=== PATIENT | male | born 1970 | race American Indian/Alaskan Native ===

== ENCOUNTER 2016-04-15 07:52 | Emergency (ER) | payer OTHER ==
[2016-04-15 08:14] VITALS: BP 158/101
[2016-04-15] MEDS ORDERED: Lidocaine 1% with EPINEPHrine 1:100,000 20 ML MDV INJECT ONE (08:19)
[2016-04-15] MEDS ORDERED: Lidocaine 1% 20 ML MDV INJECT ONE (08:22)
--- NOTE | 2016-04-15 08:22 | EDM.PDOC ---
ED HPI Trauma - General Chief Complaint: Lower Extremity Injury/Pain Stated Complaint: OBJECT IN RIGHT FOOT Time Seen by Provider: 04/15/16 08:13 - History of Present Illness INITIAL COMMENTS - FREE TEXT/NARRATIVE: HISTORY AND PHYSICAL: History of present illness: The patient is a 45-year-old male with a history of hypertension and diabetes who presents with complaints of a piece of a toothpick stuck in his right fifth toe. He states he got up to the bathroom and there was a toothpick on the floor stuck him in the foot and broke. He states a small piece is a left in the left fifth toe and there is pain to the area. He has no redness and no other injuries. Patient is aware that his blood pressure is on the high side and his sugars have not been well controlled but he is not here for that evaluation. Patient denies any other systemic complaints. Review of systems: As per history of present illness and below otherwise all systems reviewed and negative. Past medical history: As per history of present illness and as reviewed below otherwise noncontributory. Surgical history: As per history of present illness and as reviewed below otherwise noncontributory. Social history: No reported history of drug or alcohol abuse. Family history: As per history of present illness and as reviewed below otherwise noncontributory. Physical exam: General: Well-developed well-nourished male who is overweight and nontoxic. Vital signs have been noted by me HEENT: Atraumatic, normocephalic, negative for conjunctival pallor or scleral icterus, mucous membranes moist, throat clear, neck supple, nontender, trachea midline. Lungs: Clear to auscultation, breath sounds equal bilaterally, chest nontender. Heart: S1S2, regular, negative for clicks, rubs, or JVD. Abdomen: Soft, nondistended, nontender. Negative for masses or hepatosplenomegaly. NABS. Genitourinary: Deferred. Rectal: Deferred. Extremities: Atraumatic except for the lateral aspect of the right fifth toe where there is a small piece of wood that is palpable but there is no redness swelling or other defects appreciated. Patient is able to range of motion the toes and pulses are intact. The legs are, negative for cords or calf pain. Neurovascular unremarkable. Neuro: Awake, alert, oriented. Cranial nerves II through XII unremarkable. Cerebellum unremarkable. Motor and sensory unremarkable throughout. Exam nonfocal. Diagnostics: [] Therapeutics: Procedure note: After the area was cleansed/prepped with Betadine and anesthetized locally with 1% lidocaine without epinephrine and using an 11 blade scalpel a small superficial incision was made lateral to where the foreign body is palpated and using a hemostat the piece of toothpick was removed without complication. Hemostasis was achieved and a dressing with Betadine was placed per nursing. The patient tolerated this well. Impression: Foreign body right fifth toe stable Definitive disposition and diagnosis as appropriate pending reevaluation and review of above. Allergies/ADRs: Allergies No Known Allergies Allergy (Verified 04/15/16 08:07) Home Medications: Ambulatory Orders Lisinopril 10 mg PO DAILY 04/15/16 [Confirmed 04/15/16] Simvastatin [Zocor] 20 mg PO BEDTIME 04/15/16 [Confirmed 04/15/16] metFORMIN [Glucophage XR] 1,000 mg PO WITHDINNER 04/15/16 [Confirmed 04/15/16] Past Medical History Cardiovascular History: Reports: High cholesterol, Hypertension Endocrine/Metabolic History: Reports: Diabetes, type II - Infectious Disease History Infectious Disease History: Reports: Shingles Social & Family History - Tobacco Use Smoking Status *Q: Current Every Day Smoker Years of Tobacco use: 20 Packs/Tins Daily: 1 - Caffeine Use Caffeine Use: Reports: Energy drinks - Recreational Drug Use Recreational Drug Use: No Review of Systems - Review of Systems Review Of Systems: ROS reveals no pertinent complaints other than HPI. Trauma Exam - Physical Exam Exam: See Below (See dictation) Course - Vital Signs Last Recorded V/S: Last Vital Signs Temp 35.8 C 04/15/16 08:13 Pulse 92 04/15/16 08:13 Resp 18 04/15/16 08:13 BP 158/101 H 04/15/16 08:13 Pulse Ox 98 04/15/16 08:13 - Orders/Labs/Meds Orders: Active Orders 24 hr Category Date Time Status Communication Order [RC] STAT Care 04/15/16 08:47 Ordered Bacitracin [Bacitracin Oint 1 GM] Med 04/15/16 08:47 Once 1 dose TOP ONETIME ONE Meds: Medications Discontinued Medications Generic Name Dose Route Start Last Admin Trade Name Freq PRN Reason Stop Dose Admin Lidocaine HCl 20 ml 04/15/16 08:22 04/15/16 08:29 Xylocaine 1% INJECT 04/15/16 08:23 20 ml ONETIME ONE Administration Departure - Departure Time of Disposition: 08:49 Disposition: Home, Self-Care 01 Condition: good Clinical Impression: Foreign body of toe of right foot Qualifiers: Encounter type: initial encounter Qualified Code(s): S90.454A - Superficial foreign body, right lesser toe(s), initial encounter Forms: ED Department Discharge Additional Instructions: The following information is given to patients seen in the emergency department who are being discharged to home. This information is to outline your options for follow-up care. We provide all patients seen in our emergency department with a follow-up referral. The need for follow-up, as well as the timing and circumstances, are variable depending upon the specifics of your emergency department visit. If you don't have a primary care physician on staff, we will provide you with a referral. We always advise you to contact your personal physician following an emergency department visit to inform them of the circumstance of the visit and for follow-up with them and/or the need for any referrals to a consulting specialist. The emergency department will also refer you to a specialist when appropriate. This referral assures that you have the opportunity for followup care with a specialist. All of these measure are taken in an effort to provide you with optimal care, which includes your followup. Under all circumstances we always encourage you to contact your private physician who remains a resource for coordinating your care. When calling for followup care, please make the office aware that this follow-up is from your recent emergency room visit. If for any reason you are refused follow-up, please contact the [facility] emergency department at and ask to speak to the emergency department charge nurse. [facility]- Internal Medicine [place] [address] Dr Nacho [address] [place] [id number] Keep area clean and dry cleansing with mild soap and water pat dry and apply bacitracin or Neosporin. Please take antibiotics as directed. These followup with our deblocker for further care and evaluation and also your primary provider at [facility] or one of our providers in the clinic for further care of your blood pressure and diabetes. Return to ER as needed and as discussed - My Orders Last 24 Hours: My Active Orders 04/15/16 08:47 Communication Order [RC] STAT Bacitracin [Bacitracin Oint 1 GM] 1 dose TOP ONETIME ONE - Assessment/Plan Last 24 Hours: My Active Orders 04/15/16 08:47 Communication Order [RC] STAT Bacitracin [Bacitracin Oint 1 GM] 1 dose TOP ONETIME ONE
[2016-04-15] MEDS ORDERED: Bacitracin Oint 1 GM U/D Packet TOP ONE (08:47)
== END 2016-04-15 09:00 | disposition home or self-care (01) ==
LOC: MW.ED 07:52
DX: S90.454A Superficial foreign body, right lesser toe(s), initial encounter (principal); W45.8XXA Other foreign body or object entering through skin, initial encounter
CPT/HCPCS: 10120; 99282; 99283

== ENCOUNTER 2022-04-22 10:52 | Day surgery (SDC) | payer OTHER ==
[2022-04-22] MEDS ORDERED: Propofol 200 MG/20 ML SDV ONE ×2 (11:58→12:29)
[2022-04-22] MEDS ORDERED: Lactated Ringers 1,000 ML IV SCH (12:30)
[2022-04-22 13:06] VITALS: BP 113/70; PULSE 72
== END 2022-04-22 13:20 | disposition home or self-care (01) ==
LOC: MW.SDS 10:52
PROVIDERS: ATTEND Surgery
DX: Z12.11 Encounter for screening for malignant neoplasm of colon (principal); D12.5 Benign neoplasm of sigmoid colon; E11.9 Type 2 diabetes mellitus without complications; I10 Essential (primary) hypertension; N40.0 Benign prostatic hyperplasia without lower urinary tract symptoms; M19.90 Unspecified osteoarthritis, unspecified site; E78.5 Hyperlipidemia, unspecified; F17.210 Nicotine dependence, cigarettes, uncomplicated; Z79.899 Other long term (current) drug therapy
CPT/HCPCS: 45380; 45385; 82947; J2704; J7120

== ENCOUNTER 2024-10-17 14:58 | Emergency (ER) | payer SELFPAY ==
[2024-10-17 16:59] VITALS: BP 134/87; PULSE 73
== END 2024-10-17 19:00 | disposition left against medical advice (07) ==
LOC: MW.ED 14:58
DX: S90.01XA Contusion of right ankle, initial encounter (principal); I10 Essential (primary) hypertension; E11.9 Type 2 diabetes mellitus without complications; E66.9 Obesity, unspecified; Z68.30 Body mass index [BMI] 30.0-30.9, adult; Z90.49 Acquired absence of other specified parts of digestive tract; W22.8XXA Striking against or struck by other objects, initial encounter
CPT/HCPCS: 73610-26-RT; 73610-RT; 99283